=== PATIENT | female | born 1950 ===

== ENCOUNTER → 2017-08-24 | Outpatient (CLI) | payer OTHER | END | disposition home or self-care (01) | LOC: C.LABMFLN 14:08 | PROVIDERS: ATTEND Physician Assistant | DX: R30.0 Dysuria (principal) ==

== ENCOUNTER 2019-03-18 11:26 | Inpatient (IN) ==
[2019-03-18] MEDS ORDERED: SODIUM CHLORIDE 0.9% 1000ML 1,000 ML IV SCH (11:45)
--- NOTE | 2019-03-18 12:08 | XRay Report ---
SINGLE VIEW CHEST CLINICAL HISTORY: Generalized weakness. FINDINGS: An AP, portable, upright chest radiograph is obtained. No prior studies are available for c omparison at the time of dictation. The examination is degraded by portable technique and patient rot ation. A ventriculoperitoneal shunt catheter traverses the right chest wall. The heart is top normal for projection noting atherosclerotic calcification of the thoracic aorta. There is prominence of the pulmonary vasculature. There is elevation of the right hemidiaphragm and bibasilar atelectasis. No l arge pleural effusion or pneumothorax is seen. The skeletal structures are osteopenic. Healed left-si ded rib fractures are noted. IMPRESSION: 1. There is prominence of the pulmonary vasculature. Correlate clinically for evidence of mild conges tive change. 2. There is no airspace consolidation typical for pneumonia or large pleural effusion. Electronically signed by: Tenzin Colon M.D. 03/18/2019 12:07 PM
[2019-03-18 12:30] LABS: Basophils # (auto) 0.03 K/uL (0-0.2); Basophils % (auto) 0.4 %; Eosinophils # (auto) 0.05 K/uL (0-0.5); Eosinophils % (auto) 0.6 %; Hematocrit (blood only) 34.3 % (37-47); Hemoglobin 11.8 g/dL (12.0-16.0); Immature Granulocytes # (auto) 0.01 K/uL (0.00-0.02); Immature Granulocytes % (auto) 0.1 %; Lymphocytes # (auto) 1.53 K/uL (1.2-3.4); Lymphocytes % (auto) 19.4 %; Mean Corpuscular Hemoglobin 30.3 pg (25-34); Mean Corpuscular Hgb Conc 34.4 g/dL (32-36); Mean Corpuscular Volume 87.9 fL (80-100); Mean Platelet Volume 9.4 fL (7.4-10.4); Monocytes # (auto) 0.59 K/uL (0.11-0.59); Monocytes % (auto) 7.5 %; Neutrophils # (auto) 5.66 K/uL (1.4-6.5); Platelet Count 238 K/uL (130-400); RDW Coefficient of Variation 13.8 % (11.5-14.5); RDW Standard Deviation 44.3 fL (36.4-46.3); White Blood Count 7.87 K/uL (4.8-10.8)
[2019-03-18 12:51] LABS: BUN Creatinine Ratio 11.4 (10-20); Blood Urea Nitrogen 12 mg/dl (7-18); Calcium 8.7 mg/dl (8.5-10.1); Carbon Dioxide 25 mmol/L (21-32); Chloride 102 mmol/L (98-107); Est GFR (Non-African American) 53.5; Glucose 115 mg/dl (70-99); Sodium 134 mmol/L (136-145)
--- NOTE | 2019-03-18 12:53 | Emergency Department Note ---
Entered by Haroldo Roca acting as a scribe for History of Present Illness General Chief complaint: Altered Mental Status Time Seen by Provider: 03/18/19 11:30 Source: family Mode of arrival: EMS History of Present Illness Onset (ago): day(s) 1 Location: head Severity: similar to prior episodes Pain Consistency: + intermittent Quality: + other (episode) Associated symptoms: + other (altered mental status, unresponsive) The patient is a 68 year old female who presents to the Emergency Room with complaints of an episode of intermittent altered mental status and dehydration that started yesterday evening. The patients nurse states that she had an altered mental status starting yesterday and was unable to walk normally. The patients states that she was not talking properly last night, and that this morning she was unresponsive. The patients sister and report that she additionally fell last night. The patients additionally reports that this is her 5th episode like this. The patients caretakers state that she has a history of UTI with dehydration and low sodium levels. The patients notes that she is normally alert and talkative. The patients reports that she has a history of cancer, which was treated with chemotherapy to her brain. The patients also notes that she has a history of dementia. Home Medications Home Medications Medication Instructions Recorded Confirmed Type albuterol sulfate HFA 90 2 puffs INHALATION Q4H PRN #18 gm 12/14/18 03/18/19 Rx mcg/actuation aerosol inhaler ipratropium-albuterol 0.5 mg-3 3 ml INHALATION Q4H PRN #180 ml 12/14/18 03/18/19 Rx mg(2.5 mg base)/3 mL nebulization soln Prevagen 1 tab PO QAM 03/18/19 03/18/19 History cefdinir 300 mg PO BID 10 Days #20 cap 03/18/19 Rx fluticasone propion-salmeterol 1 puffs INHALATION QAM 03/18/19 03/18/19 History [Advair Diskus] multivitamin 1 tab PO BID 03/18/19 03/18/19 History omega-3 fatty acids-fish oil [Fish 1 cap PO BID 03/18/19 03/18/19 History Oil] omeprazole 40 mg PO QPM 03/18/19 03/18/19 History polyethylene glycol 3350 17 gm PO DAILY PRN 03/18/19 03/18/19 History rosuvastatin 20 mg PO QPM 03/18/19 03/18/19 History sertraline [Zoloft] 25 mg PO QAM 03/18/19 03/18/19 History tiotropium bromide 1 cap INHALATION QAM 03/18/19 03/18/19 History Allergies Allergy/AdvReac Type Severity Reaction Status Date / Time Penicillins Allergy Verified 03/18/19 12:15 strawberry Allergy Verified 03/18/19 12:15 Past Med/Surg History Medical History Recurrent UTI (Acute) Memory loss or impairment (Acute) Hyponatremia (Acute) Generalized weakness (Acute) GERD without esophagitis (Acute) Depression (Acute) COPD, mild (Acute) Abnormal thyroid function test (Acute) Family History Other No significant family history Social History Preferred Language: Ukrainian Feels Safe at Home: Yes Smoking Status: Unknown if ever smoked Review of Systems See HPI for pertinent positives & negatives. and A total of 10 systems reviewed and were otherwise negative Physical Exam Vital Signs Vital Signs - 24 hr 03/18/19 11:37 03/18/19 11:41 Temperature 37 C Temperature Source Oral Sepsis Recent Fever Within 48 Hours No Sepsis New/Unexplained Change in Mental Status No Sepsis Action Taken by Nursing No Action Required Pulse Rate 97 H Respiratory Rate 20 Blood Pressure 129/75 Blood Pressure Mean 93 Pulse Oximetry 93 Oxygen Delivery Method Room Air Room Air CONSTITUTIONAL/VITAL SIGNS: Reviewed / noted above. GENERAL: Nonverbal. INTEGUMENTARY: Warm, dry, and [place]. HEAD: Normocephalic. EYES: without scleral icterus or trauma. ENT/OROPHARYNX: clear and moist. LYMPHADENOPATHY/NECK: Is supple without lymphadenopathy or meningismus. RESPIRATORY: Lungs clear and equal. CARDIOVASCULAR: Regular rate and rhythm. GI/ABDOMEN: Soft and nontender. No organomegaly or pulsatile mass. No rebound or guarding. Normal bowel sounds. EXTREMITIES: Warm and well perfused. BACK: No CVA tenderness. NEUROLOGICAL: Moves all extremities. PSYCHIATRIC: normal affect. MUSCULOSKELETAL: Normally developed with good muscle tone. Course 1130: The patient was evaluated in room C04. A complete history and physical exam was performed. 1331: Upon reevaluation, the patient was resting comfortably. I discussed findings and results with her. She verbalized agreement of the treatment plan. The patient was discharged home. Administered Medications Ceftriaxone Sodium 1,000 mg/ (Dextrose) 60 mls @ 100 mls/hr IV NOW STA; Protocol Stop: 03/18/19 13:52 Last Admin: 03/18/19 13:31 Dose: Not Given Documented by: [id number] Discontinued Medications Ceftriaxone Sodium (Rocephin) Confirm Administered Dose 1,000 mg IV .STK-MED ONE Stop: 03/18/19 13:25 Last Admin: 03/18/19 13:31 Dose: 1,000 mg Documented by: [id number] Sodium Chloride (Nss 1000ml) 1,000 mls @ 999 mls/hr IV .Q1H1M ZIGGY Stop: 03/18/19 12:45 Last Infusion: 03/18/19 13:22 Dose: 0 mls/hr Documented by: [id number] Admin: 03/18/19 12:10 Dose: 999 mls/hr Documented by: [id number] Medical Decision Making Differential Diagnosis Differential includes acute coronary syndrome, myocardial infarction, CVA, TIA, anemia, infection, pneumonia, UTI, pyelonephritis, poor nutrition, dehydration, electrolyte disturbance,hypoglycemia. Medical Records Attestation: I reviewed the patient's medical records. Home Medications Current Medication List: was personally reviewed by me Laboratory Data Attestation: I reviewed the patient's lab results. Result diagrams: 03/18/19 12:18 03/18/19 12:18 Lab Results 03/18/19 03/18/19 03/18/19 Range/Units 12:18 12:18 12:52 WBC 7.87 (4.8-10.8) K/uL RBC 3.90 L (4.2-5.4) M/uL Hgb 11.8 L (12.0-16.0) g/dL Hct 34.3 L (37-47) % MCV 87.9 (80-100) fL MCH 30.3 (25-34) pg MCHC 34.4 (32-36) g/dL RDW Std Deviation 44.3 (36.4-46.3) fL RDW Coeff of Jayne 13.8 (11.5-14.5) % Plt Count 238 (130-400) K/uL MPV 9.4 (7.4-10.4) fL Immature Gran % (Auto) 0.1 % Neut % (Auto) 72.0 % Lymph % (Auto) 19.4 % [place] % (Auto) 7.5 % Eos % (Auto) 0.6 % Baso % (Auto) 0.4 % Immature Gran # (Auto) 0.01 (0.00-0.02) K/uL Neut # (Auto) 5.66 (1.4-6.5) K/uL Lymph # (Auto) 1.53 (1.2-3.4) K/uL [place] # (Auto) 0.59 (0.11-0.59) K/uL Eos # (Auto) 0.05 (0-0.5) K/uL Baso # (Auto) 0.03 (0-0.2) K/uL Sodium 134 L (136-145) mmol/L Potassium 4.0 (3.5-5.1) mmol/L Chloride 102 (98-107) mmol/L Carbon Dioxide 25 (21-32) mmol/L Anion Gap 7.0 (3-11) BUN 12 (7-18) mg/dl Creatinine 1.06 (0.6-1.2) mg/dl Est Cr Clr Drug Dosing Not Reportable Est GFR ( Amer) 62.0 Est GFR (Non-Af Amer) 53.5 BUN/Creatinine Ratio 11.4 (10-20) Glucose 115 H (70-99) mg/dl Calcium 8.7 (8.5-10.1) mg/dl TSH 2.310 (0.300-4.500) uIu/ml Urine Color Yellow Urine Appearance Clear (Clear) Urine pH 8.5 H (4.5-7.5) Ur Specific [place] 1.011 (1.000-1.030) Urine Protein Negative (Negative) Urine Glucose (UA) Negative (Negative) Urine Ketones Negative (Negative) Urine Blood Trace H (Negative) Urine Nitrite Positive A (Negative) Urine Bilirubin Negative (Negative) Urine Urobilinogen Negative (Negative) Ur Leukocyte Esterase 3+ H (Negative) Urine WBC (Auto) >30 H (0-5) /hpf Urine RBC (Auto) 5-10 H (0-4) /hpf U Hyaline Cast (Auto) 1-5 (0-5) /lpf U Epithel Cells (Auto) 0-5 (0-5) /lpf Urine Bacteria (Auto) 4+ H (Negative) Imaging Data Radiologist's Impression: Radiology results as stated below per my review and the radiologist's interpretation: SINGLE VIEW CHEST CLINICAL HISTORY: Generalized weakness. FINDINGS: An AP, portable, upright chest radiograph is obtained. No prior sadiq dies are available for comparison at the time of dictation. The examination is degraded by portable technique and patient rotation. A ventriculoperitoneal shunt catheter traverses the right chest wall. The heart is top normal for projection noting atherosclerotic calcification of the thoracic aorta. There is prominence of the pulmonary vasculature. There is elevation of the right hemidiaphragm and bibasilar atelectasis. No large pleural effusion or pneumothorax is seen. The skeletal structures are osteopenic. Healed left-sided rib fractures are noted. IMPRESSION: 1. There is prominence of the pulmonary vasculature. Correlate clinically for evidence of mild congestive change. 2. There is no airspace consolidation typical for pneumonia or large pleural effusion. Electronically signed by: Tenzin Colon M.D. 03/18/2019 12:[address] SCAN OF THE BRAIN WITHOUT IV CONTRAST CLINICAL HISTORY: Change in mental status. History of radiation treatment. COMPARISON STUDY: No priors. TECHNIQUE: Unenhanced axial CT scan of the brain is performed from the vertex to the skull base. A dose lowering technique was utilized adhering to the principles of ALARA. The patient was scanned twice due to motion artifact. CT DOSE: 1139.46 mGy.cm FINDINGS: Brain parenchyma: A right frontal approach ventriculostomy catheter terminates at the roof of the third ventricle. There is right frontal encephalomalacia. There is involutional change. Confluent white matter hypodensity is likely related to the reported history of radiation treatment. This could also represent microangiopathic change. Mineralization is noted in the gisela. There is no hemorrhage, mass effect, or evidence of acute territorial ischemia by CT criteria. Dawn-white matter differentiation is preserved. No extra-axial fluid collection is seen. Ventricles, sulci, cisterns: Prominent secondary to involutional change. See above. Intracranial vasculature: Intracranial vessels at the skull base are normal as visualized. Calvarium: There is a right frontal tasha hole. The calvarium is otherwise intact. Sinuses and mastoids: The visualized paranasal sinuses are clear. There are bilateral mastoid effusions. Orbits: The bony orbits are grossly intact. IMPRESSION: 1. There is no hemorrhage, mass effect, or evidence of acute territorial ischemia by CT criteria noting a motion compromised examination. 2. A right frontal approach ventriculostomy catheter is in place as above. Electronically signed by: Tenzin Colon M.D. 03/18/2019 1:09 PM ECG Data Attestation: I personally reviewed and interpreted this ECG as follows: Indication: weakness Rate (beats per minute): 90 Rhythm: normal sinus Findings: no ST elevation and no ectopy Comparison ECG Date: no prior available Blood Pressure Blood Pressure Findings: Elevated blood pressure Blood Pressure Disposition: did not require urgent referral MDM Narrative This is a 68-year-old female who presents to the ED with a chief complaint of altered mental status that started yesterday. The patient had some difficulty with ambulation yesterday and last night the speech was not quite right. The provides most of the history. He states the patient has a history of UTI and dehydration and has had at least 5 similar episodes to this. They [facility] but they decided to come here today. The patient's exam reveals that she is nonverbal. She does have a history of dementia, according to the . She has had previous radiation to her brain regarding cancer. The patient's vital signs are normal. Her physical exam reveals nonverbal state. She does not follow commands but does move all 4 extremities. She is in no distress. The lungs are clear. CBC is normal. Chemistry panel was unremarkable. Urine is suggestive of infection. The patie nt was given IV Rocephin here. She was also given some IV fluids. 1 L normal saline. The patient was discharged. She was discharged on Ceftin ear 500 mg twice daily for 5 days. She was given an extra 5 days for continuation symptoms. Impression & Plan AMS (altered mental status), Acute UTI Discharge Plan Visit Data Chief Complaint: Altered Mental Status ED Provider: Andrew Sutton Discharge Problem: AMS (altered mental status), Acute UTI Patient Disposition: Home - Self-Care Condition: Good Discharge Instructions Activity Restrictions/Additional Instructions: Omnicef as prescribed for 5 days. Follow-up with your doctor for further care and evaluation in 1-2 days if symptoms persist. Return to the emergency department for worsening or new symptoms or any concerns. You have been examined and treated today on an emergency basis only. This is not a substitute for, or an effort to provide, complete comprehensive medical care. It is impossible to recognize and treat all injuries or illnesses in a single emergency department visit. It is therefore important that you follow up closely with your doctor. Call as soon as possible for an appointment. Forms Stand Alone Forms: My [facility], Important Visit Information Prescriptions Prescriptions: New cefdinir 300 mg capsule 300 mg PO BID 10 Days Qty: 20 RF: 0 No Action albuterol sulfate 90 mcg/actuation HFA aerosol inhaler 2 puffs inhalation Q4H PRN (Reason: shortness of breath or wheezing) Qty: 18 RF: 3 ipratropium-albuterol 0.5 mg-3 mg(2.5 mg base)/3 mL solution for nebulization 3 ml inhalation Q4H PRN (Reason: shortness of breath or wheezing) Qty: 180 RF: 3 multivitamin Tablet 1 tab PO BID RF: 0 omega-3 fatty acids-fish oil [Fish Oil] 360-1,200 mg Capsule 1 cap PO BID RF: 0 Prevagen tablet 1 tab PO QAM RF: 0 fluticasone propion-salmeterol [Advair Diskus] 250-50 mcg/dose blister with device 1 puffs inhalation QAM RF: 0 omeprazole 40 mg capsule,delayed release(DR/EC) 40 mg PO QPM RF: 0 sertraline [Zoloft] 25 mg tablet 25 mg PO QAM RF: 0 polyethylene glycol 3350 17 gram/dose powder 17 gm PO DAILY PRN (Reason: Constipation) RF: 0 rosuvastatin 20 mg tablet 20 mg PO QPM RF: 0 tiotropium bromide 18 mcg capsule, w/inhalation device 1 cap inhalation QAM RF: 0 Referrals Referrals: Laurence Alfaro PA-C [Primary Care Provider] - Discharge Problem: AMS (altered mental status) Qualifiers: Altered mental status type: somnolence Qualified Code(s): R40.0 - Somnolence The scribe's documentation has been prepared under my direction and personally reviewed by me in its entirety. I confirm that the note above accurately reflects all work, treatment, procedures, and medical decision making performed by me.
[2019-03-18 13:03] LABS: Appearance Urine Clear (Clear); Bacteria Urine Automated 4+ (Negative); Bilirubin Urine Negative (Negative); Blood Urine Trace (Negative); Color Urine Yellow; Epithelial Cell Urine Auto 0-5 /lpf (0-5); Glucose Urine UA Negative (Negative); Ketones Urine Negative (Negative); Leukocyte Esterase Urine 3+ (Negative); Nitrite Urine Positive (Negative); Protein Urine Negative (Negative); Specific Gravity Urine 1.011 (1.000-1.030); Urobilinogen Urine Negative (Negative); WBC Urine Automated >30 /hpf (0-5); pH Urine 8.5 (4.5-7.5)
--- NOTE | 2019-03-18 13:11 | CT Scan Report ---
CT SCAN OF THE BRAIN WITHOUT IV CONTRAST CLINICAL HISTORY: Change in mental status. History of radiation treatment. COMPARISON STUDY: No priors. TECHNIQUE: Unenhanced axial CT scan of the brain is performed from the vertex to the skull base. A do se lowering technique was utilized adhering to the principles of ALARA. The patient was scanned twice due to motion artifact. CT DOSE: 1139.46 mGy.cm FINDINGS: Brain parenchyma: A right frontal approach ventriculostomy catheter terminates at the roof of the thi rd ventricle. There is right frontal encephalomalacia. There is involutional change. Confluent white matter hypodensity is likely related to the reported history of radiation treatment. This could also represent microangiopathic change. Mineralization is noted in the gisela. There is no hemorrhage, mass effect, or evidence of acute territorial ischemia by CT criteria. Dawn-white matter differentiation i s preserved. No extra-axial fluid collection is seen. Ventricles, sulci, cisterns: Prominent secondary to involutional change. See above. Intracranial vasculature: Intracranial vessels at the skull base are normal as visualized. Calvarium: There is a right frontal tasha hole. The calvarium is otherwise intact. Sinuses and mastoids: The visualized paranasal sinuses are clear. There are bilateral mastoid effusio ns. Orbits: The bony orbits are grossly intact. IMPRESSION: 1. There is no hemorrhage, mass effect, or evidence of acute territorial ischemia by CT criteria noti ng a motion compromised examination. 2. A right frontal approach ventriculostomy catheter is in place as above. Electronically signed by: Tenzin Colon M.D. 03/18/2019 1:09 PM
[2019-03-18] MEDS ORDERED: cefTRIAXone SODIUM 1,000 MG in DEXTROSE 5% 50 ML IV STA (13:17)
[2019-03-18] MEDS ORDERED: cefTRIAXone SODIUM 1000MG/50ML D5W IV ONE (13:24)
--- NOTE | 2019-03-18 15:35 | History & Physical Report ---
Date of Service March 18, 2019 Assessment & Plan (1) AMS (altered mental status): Early sepsis in setting of UTI and baseline dementia Improving s/p IVF and ceftriaxone, will continue WBC WNL Afebrile CT head and CXR neg for acute UA as noted, cx pending Last cx noted was 01/12/19 and pansensitive Ambulatory dysunction (2) Acute UTI: As noted above (3) Memory loss or impairment: s/p radiation with shunt in place Baseline is quite interactive with lapses in short term memory Ambulates with walker Home PT and caregivers (4) Hyponatremia: Hx of prior requiring hospitalization 134 on admission Monitor (5) GERD without esophagitis: continue home meds (6) Depression: continue home meds (7) 1st degree AV block: Noted on EKG, uncertain if new Repeat in AM (8) COPD, mild: continue home meds No signs of exacerbation (9) DVT prophylaxis: SCDs, Heparin for DVT proph History of Present Illness Primary Care Provider: Laurence Alfaro PA-C 68 y/o F who was brought in by family due to AMS/lethargy. Pt has hx of UTI and family noted that she was having minor AMS last HS around 10p. When this happens, they generally call their PCP and get an order for a UA and she is treated as an outpt. She is incontinent of urine and stool at baseline. They had planned to call PCP this AM but when they woke up, pt was not responding to them as she usually would. She attempted to stand with her walker, which is her baseline, and she fell backwards. They brought pt to the ED for further eval. Most of her care is generally at [facility], however they have not been satisfied with their care there recently and came to [facility] instead. Pt was given abx in the ED and family feels she is better than she was this AM, but not at her usual. They state that pt was her usual yesterday. No complaints to them about any health issues. She ate all of her meals yesterday at her usual amount of consumption. Pt has a hx of small cell lung cancer. At some point in her tx about 6 years ago, she did receive radiation to her brain and has developed worsening dementia. Her usual interactions are complete sentences and can follow a conversation. She does occasionally forget names, but always recognizes her family. She always knows the year and has a general concept of date. For instance they say she would possibly think it is still February since it is early in the month of March. She also generally knows where she is. She frequently has poor short term memory for recent daily events. Pt denies fever, SOB, chest pain, abd pain, n/v/c/d, LE pain or swelling. 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 Allergies Allergy/AdvReac Type Severity Reaction Status Date / Time Penicillins Allergy Verified 03/18/19 12:15 strawberry Allergy Verified 03/18/19 12:15 Home Medications Home Medications Medication Instructions Recorded Confirmed Type albuterol sulfate HFA 90 2 puffs INHALATION Q4H PRN #18 gm 12/14/18 03/18/19 Rx mcg/actuation aerosol inhaler ipratropium-albuterol 0.5 mg-3 3 ml INHALATION Q4H PRN #180 ml 12/14/18 03/18/19 Rx mg(2.5 mg base)/3 mL nebulization soln Prevagen 1 tab PO QAM 03/18/19 03/18/19 History cefdinir 300 mg PO BID 10 Days #20 cap 03/18/19 Rx fluticasone propion-salmeterol 1 puffs INHALATION QAM 03/18/19 03/18/19 History [Advair Diskus] multivitamin 1 tab PO BID 03/18/19 03/18/19 History omega-3 fatty acids-fish oil [Fish 1 cap PO BID 03/18/19 03/18/19 History Oil] omeprazole 40 mg PO QPM 03/18/19 03/18/19 History polyethylene glycol 3350 17 gm PO DAILY PRN 03/18/19 03/18/19 History rosuvastatin 20 mg PO QPM 03/18/19 03/18/19 History sertraline [Zoloft] 25 mg PO QAM 03/18/19 03/18/19 History tiotropium bromide 1 cap INHALATION QAM 03/18/19 03/18/19 History Past Med/Surg History Medical History Recurrent UTI (Acute) Memory loss or impairment (Acute) Hyponatremia (Acute) Generalized weakness (Acute) GERD without esophagitis (Acute) Depression (Acute) COPD, mild (Acute) Abnormal thyroid function test (Acute) Family History Mother Cancer Other No significant family history Social History Preferred Language: Kinyar[place]anda Feels Safe at Home: Yes Smoking Status: Former smoker Number of Years Since Quit: 16 ; Hx Alcohol Use: Yes (1 glass of wine nightly) Hx Substance Use: No Review of Systems Review of Systems: Pertinent positives and negatives reviewed in HPI--all others negative Physical Exam Constitutional: WD/WN, vitals as above Eyes: normal visual mendez by confrontation and + anicteric sclerae Neck: normal visual inspection and trachea midline Respiratory: normal respiratory effort, lungs clear to auscultation Cardiovascular: Rate/Rhythm: regular rate and regular rhythm Gastrointestinal (Abdomen): Inspection/Auscultation: abdomen not distended Percussion/Palpation: abdomen soft; abdomen nontender Musculoskeletal: Head/Neck/Chest: normocephalic and head atraumatic negative for edema, peripheral pulses intact Skin: no rashes, warm and dry Neurologic: awake and + confused Speech / Cognition: + abnormal speech Psychiatric: Orientation: oriented to person and cooperative Follows basic commands when asked to take a deep breath or roll to her side Results & Data Vital Signs (Past 12 Hours) Vital Signs Temp Pulse Resp BP Pulse Ox 03/18/19 15:00 20 94 03/18/19 14:30 20 96 03/18/19 14:22 20 92 03/18/19 14:05 20 141/84 H 95 03/18/19 13:30 92 H 20 95 03/18/19 13:06 94 H 19 95 03/18/19 12:30 92 H 23 95 03/18/19 11:37 37 C 97 H 20 129/75 93 Diagnostic Findings CXR: neg for acute CT head: neg for acute ECG Findings: + 1st degree AV block Additional Comments: incomplete RBBB Code Status & VTE Plan Code Status DNR/DNI PG Care Time/CCT Total # of Minutes Spent Total Time Spent with Patient: Total time spent is greater than 50% in coordination of care (as documented) at patient's floor/unit and/or counseling patient: (1) AMS (altered mental status) Altered mental status type: somnolence Qualified Code(s): R40.0 - Somnolence
[2019-03-18] MEDS ORDERED: ACETAMINOPHEN 325 MG TAB PO PRN (18:00)
[2019-03-18] MEDS ORDERED: ONDANSETRON INJ 2 MG/ML 2 ML VIAL IV PRN (18:00)
[2019-03-18] MEDS ORDERED: ALBUTEROL HFA 8 GM INHALER INH PRN (18:00)
[2019-03-18] MEDS ORDERED: MAGNESIUM HYDROXIDE SUSP 30 ML UDC PO PRN (18:00)
[2019-03-18] MEDS ORDERED: POLYETHYLENE (MIRALAX) 17 GM PACK PO PRN (18:00)
[2019-03-18] MEDS ORDERED: ALBUT/IPRATROP 3MG/0.5MG NEB 3 ML VIAL INH PRN (18:00)
[2019-03-18] MEDS: SERTRALINE HCL 50 MG TABLET PO SCH (19:13)
[2019-03-18] MEDS: SODIUM CHLORIDE 0.9% 1000ML 1,000 ML IV SCH (19:14)
[2019-03-18] MEDS: HEPARIN SOD 5,000 UNIT/0.5 ML VIAL SQ SCH (20:34)
[2019-03-18] MEDS: OMEGA-3 (PURIFIED FISH OIL) 1 GM CAP PO SCH (20:35)
[2019-03-18] MEDS: PANTOprazole 40 MG TAB PO SCH (20:35)
[2019-03-18] MEDS: ROSUVASTATIN CALCIUM 20 MG TAB PO SCH (20:35)
[2019-03-18] MEDS ORDERED: INFLUENZA ADMINISTRATION CHARGE ONE (21:30)
[2019-03-18] MEDS ORDERED: INFLUENZA VACCINE HIGH DOSE 65+ 0.5 ML SYR IM ONE (21:30)
[2019-03-18] MEDS ORDERED: PNEUMOCOCCAL POLYSACCHARIDES 25 MCG/0.5 ML VIAL/SYR IM ONE (21:30)
[2019-03-18] MEDS ORDERED: PNEUMOCOCCAL ADMINISTRATION CHARGE ONE (21:30)
[2019-03-19] MEDS: HEPARIN SOD 5,000 UNIT/0.5 ML VIAL SQ SCH ×3 (06:19→21:33)
[2019-03-19 06:36] LABS: Basophils # (auto) 0.03 K/uL (0-0.2); Basophils % (auto) 0.5 %; Eosinophils # (auto) 0.12 K/uL (0-0.5); Eosinophils % (auto) 2.1 %; Hematocrit (blood only) 33.1 % (37-47); Hemoglobin 11.1 g/dL (12.0-16.0); Immature Granulocytes # (auto) 0.01 K/uL (0.00-0.02); Immature Granulocytes % (auto) 0.2 %; Lymphocytes # (auto) 1.92 K/uL (1.2-3.4); Lymphocytes % (auto) 33.2 %; Mean Corpuscular Hemoglobin 29.7 pg (25-34); Mean Corpuscular Hgb Conc 33.5 g/dL (32-36); Mean Corpuscular Volume 88.5 fL (80-100); Mean Platelet Volume 9.7 fL (7.4-10.4); Monocytes # (auto) 0.72 K/uL (0.11-0.59); Monocytes % (auto) 12.5 %; Neutrophils # (auto) 2.98 K/uL (1.4-6.5); Neutrophils % (auto) 51.5 %; Platelet Count 199 K/uL (130-400); RDW Coefficient of Variation 13.9 % (11.5-14.5); RDW Standard Deviation 44.9 fL (36.4-46.3); Red Blood Count 3.74 M/uL (4.2-5.4); White Blood Count 5.78 K/uL (4.8-10.8)
[2019-03-19 07:15] LABS: BUN Creatinine Ratio 11.6 (10-20); Blood Urea Nitrogen 10 mg/dl (7-18); Calcium 8.2 mg/dl (8.5-10.1); Carbon Dioxide 23 mmol/L (21-32); Chloride 102 mmol/L (98-107); Est GFR (African American) 78.8; Glucose 88 mg/dl (70-99); Potassium 3.1 mmol/L (3.5-5.1); Sodium 133 mmol/L (136-145)
--- NOTE | 2019-03-19 08:41 | Hospitalist Progress Note ---
Date of Service March 19, 2019 Assessment & Plan (1) AMS (altered mental status): Metabolic encephalopathy Unsure if the cause is from her "recurrent UTI's She also has episodes of dehydration. She is much improved less than 24 hours after instituting antibiotics. She has also sally receiving IBV fluids. I had extensive discussion with on asymptomatic bacteruria. He still beliebves the infections though are causing these episodes. I iffered intermittent IV fluids administration to help combat her rehydration at home. He refused. He did like the idea of keeping a journal of how much fluid she drinks so we can keep an eye of when she gets dehyydrated. I explained that I do not want her to get home UA's as this could promote resistance and we may just be treating asymptomatic bacteruira. was interested in vaginal estrogen as this may improve and help limit bacteruria. This will be ordered as patient does not have any vaginal bleeding. will continue antibiotics for now. If cultures are resistant to cephalosporin, I explained that then, the antibiotics have no role in her recovery. WBC WNL Afebrile CT head and CXR neg for acute UA as noted, cx pending Last cx noted was 01/12/19 and pansensitive Ambulatory dysunction Family interested in followup with urology as outpatient. 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 She is accompanied by her who is at bedside. She smiles, does not provide medical history. Her states that he is interested in obtaining urine dip sticks at home for home monitoring for her "recurrent uti's". As these are causing her episodes of confusion. also states she appears dehydrated as well when these episodes occur. He states that there are days where he is unsure if she drinks enough fluids. He states she looks much better today. Review of Systems Review of Systems: Unobtainable due to cognitive status Physical Exam Physical Exam: Constitutional: WD/WN, vitals as above; smiling pleasant female in bed Eyes: normal visual mendez by confrontation and + anicteric sclerae Neck: normal visual inspection and trachea midline Respiratory: normal respiratory effort, lungs clear to auscultation Cardiovascular: Rate/Rhythm: regular rate and regular rhythm Gastrointestinal (Abdomen): Inspection/Auscultation: abdomen not distended Percussion/Palpation: abdomen soft; abdomen nontender Musculoskeletal: Head/Neck/Chest: normocephalic and head atraumatic negative for edema, peripheral pulses intact Skin: no rashes, warm and dry Neurologic: awake and + confused Speech / Cognition: + abnormal speech Psychiatric: Orientation: oriented to person and cooperative Results & Data Vital Signs (Past 12 Hours) Vital Signs Temp Pulse Pulse Resp BP Pulse Ox 03/19/19 07:18 36.6 C 72 18 118/73 92 03/19/19 04:09 36.8 C 80 20 107/70 98 03/19/19 01:24 91 H 03/18/19 23:46 37.4 C 89 20 128/78 96 PG Care Time/CCT Total # of Minutes Spent Total Time Spent with Patient: Total time spent is greater than 50% in coordination of care (as documented) at patient's floor/unit and/or counseling patient: (1) AMS (altered mental status) Altered mental status type: somnolence Qualified Code(s): R40.0 - Somnolence
[2019-03-19] MEDS: TIOTROPIUM BROMIDE 5 PUFF/90 MCG INH INH SCH (08:50)
[2019-03-19] MEDS: MULTIVITAMIN TAB PO SCH (08:51)
[2019-03-19] MEDS: FLUTICASONE/SALMETEROL 250/50 (ADVAIR) 14 PUFF/1 INHALER INH SCH (08:52)
[2019-03-19] MEDS: SERTRALINE HCL 50 MG TABLET PO SCH (08:52)
[2019-03-19] MEDS: OMEGA-3 (PURIFIED FISH OIL) 1 GM CAP PO SCH ×2 (08:59→21:33)
[2019-03-19] MEDS ORDERED: NON-FORMULARY MEDICATION (Prevagen 1 TAB) PO SCH (09:00)
[2019-03-19] MEDS: POTASSIUM CHLORIDE PWD 20 MEQ PACK PO SCH ×3 (09:02→21:33)
[2019-03-19] MEDS: PREMARIN VAG CRM 14 APPLN/30 GM TUBE PV SCH (12:07)
[2019-03-19] MEDS: SODIUM CHLORIDE 0.9% 1000ML 1,000 ML IV SCH (12:08)
[2019-03-19] MEDS: cefTRIAXone SODIUM 2,000 MG in DEXTROSE 5% 50 ML IV SCH (14:12)
[2019-03-19] MEDS: ROSUVASTATIN CALCIUM 20 MG TAB PO SCH (21:33)
[2019-03-19] MEDS: PANTOprazole 40 MG TAB PO SCH (21:34)
[2019-03-20] MEDS: SODIUM CHLORIDE 0.9% 1000ML 1,000 ML IV SCH (03:59)
[2019-03-20] MEDS: HEPARIN SOD 5,000 UNIT/0.5 ML VIAL SQ SCH ×2 (05:07→13:54)
[2019-03-20] MEDS: FLUTICASONE/SALMETEROL 250/50 (ADVAIR) 14 PUFF/1 INHALER INH SCH (08:28)
[2019-03-20] MEDS: MULTIVITAMIN TAB PO SCH (08:28)
[2019-03-20] MEDS: POTASSIUM CHLORIDE PWD 20 MEQ PACK PO SCH (08:28)
[2019-03-20] MEDS: OMEGA-3 (PURIFIED FISH OIL) 1 GM CAP PO SCH (08:29)
[2019-03-20] MEDS: TIOTROPIUM BROMIDE 5 PUFF/90 MCG INH INH SCH (08:29)
[2019-03-20] MEDS: SERTRALINE HCL 50 MG TABLET PO SCH (08:30)
[2019-03-20] MEDS: PREMARIN VAG CRM 14 APPLN/30 GM TUBE PV SCH (08:31)
[2019-03-20] MEDS: cefTRIAXone SODIUM 2,000 MG in DEXTROSE 5% 50 ML IV SCH (13:53)
--- NOTE | 2019-03-20 19:11 | Discharge Summary ---
Date of Service March 20, 2019 Admission HPI Per Admitting Provider 68 y/o F who was brought in by family due to AMS/lethargy. Pt has hx of UTI and family noted that she was having minor AMS last HS around 10p. When this happens, they generally call their PCP and get an order for a UA and she is treated as an outpt. She is incontinent of urine and stool at baseline. They had planned to call PCP this AM but when they woke up, pt was not responding to them as she usually would. She attempted to stand with her walker, which is her baseline, and she fell backwards. They brought pt to the ED for further eval. Most of her care is generally at [facility], however they have not been satisfied with their care there recently and came to [facility] instead. Pt was given abx in the ED and family feels she is better than she was this AM, but not at her usual. They state that pt was her usual yesterday. No complaints to them about any health issues. She ate all of her meals yesterday at her usual amount of consumption. Pt has a hx of small cell lung cancer. At some point in her tx about 6 years ago, she did receive radiation to her brain and has developed worsening dementia. Her usual interactions are complete sentences and can follow a conversation. She does occasionally forget names, but always recognizes her family. She always knows the year and has a general concept of date. For instance they say she would possibly think it is still February since it is early in the month of March. She also generally knows where she is. She frequently has poor short term memory for recent daily events. Pt denies fever, SOB, chest pain, abd pain, n/v/c/d, LE pain or swelling. 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 Principal Diagnosis Metabolic encephalopathyrelated to urinary tract infection, dehydration, or both. Discharge Exam Awake and alert pleasant no distress. HEENT normal cephalic atraumatic mucous membranes moist. Breathing unlabored no accessory muscle use. Skin shows no rashes no pallor or icterus. No focal neuro deficits Discharge Data Allergies Allergy/AdvReac Type Severity Reaction Status Date / Time Penicillins Allergy Unknown Verified 03/18/19 18:11 strawberry Allergy Unknown Verified 03/18/19 18:11 Consultations 03/18/19 14:45 ED Decision to Admit Stat 03/18/19 18:00 Consult Case Management - Discharge Planning Routine Ordered Studies 03/18/19 11:40 CT head/brain wo con Stat Hospital Course (1) AMS (altered mental status): Seems to have been related to dehydration, or possibly a UTI as well. Improved with hydration, discussed following oral intake and encouraging at least 60 ounces of fluid a day. Discussed that if she has one bad day with suboptimal fluid intake they should encourage more heavily the next, and if she is working on 3 days with poor oral intake it would be reasonable for MTU for IV fluids to keep her from deteriorating to where she is truly encephalopathic and needing to be admitted. See below as far as UTI (2) Acute UTI: Given that she did not seem to have fever, white count, or clear-cut urinary symptoms, it is not clear if she really had a UTI or if she just had asymptomatic bacteriuria; that said we are several days removed from her acute presentation and she is already under treatment and obviously on unfortunately unreliable historian. Because of all of this we feel obligated to treat the current culture as an infection, but I discussed with the extensively about more recent literature as well as my own clinical experiences with similar situations, that they should look at some degree of clinical logic between simply deciding and altered mental status relates to a urinary tract infection in the futuregiven examples of new urinary symptoms, fever, leukocytosis, or anything else to suggest she does not fact have an infection. For now finish out a course of treatment for complicated UTI (because of her age and the concern on it being part of her encephalopathy) with Keflex. (3) Memory loss or impairment: Stable for home with family support (4) Hyponatremia: Overall stable, outpatient follow-up (5) GERD without esophagitis: continue home meds (6) Depression: continue home meds (7) 1st degree AV block: Outpatient follow-up (8) COPD, mild: continue home meds No signs of exacerbation (9) DVT prophylaxis: SCDs, Heparin for DVT proph utilized during her stay Total Time Total Time Spent Total Time Spent (In Minutes): Greater than 30 Discharge Plan Discharge Items Patient Disposition: Home - Self-Care Reason For Visit: AMS,UTI Discharge Diagnosis: altered mental status - see below Condition on Discharge: Good Activity: Resume your previous activity Non-emergency contact: Primary Care Provider Call non-emergency contact if: you have any medication questions, your symptoms worsen and you have a fever Follow-up/Referrals: Laurence Alfaro PA-C [Primary Care Provider] - Diet: Regular Addtl Attending Provider Instructions: altered mental status -as we discussed - forever when a patient with dementia would have any alteration in their status, if a urinalysis or culture were positive we'd treat it as an infection and assume the infection was culprit in causing the confusion. however, over the last five years or so, a significant amount of research (backed by our own clinical experiences) has turned that thinking sideways and made us realize that a significant percentage of episodes of confusion are related to things besides a urine infection -as a post-menopausal female, she's likely to have a positive urinalysis or culture fairly frequently, on any given day, regardless of how she's feeling --> and with asymptomatic bacteria in the bladder being a common thing, it's also been shown in research that treating bacteria not causing an infection causes harm to people (generally by breeding resistant bacteria that are harder to treat when she gets a real infection, and in upsetting gut bacteria by killing off healthy bacteria with the antibiotics) -in my experience, urinary tract infections probably account for about 25% of change of mental status in people with dementia, but things like dehydration account for more like 50-60% of cases, with the rest being more vague and nonspecific (such as transient viral infections or situations where there's not a clear cause but it gets better) -to protect her from unnecessary antibiotics, it would be reasonable to put a small "safeguard" of clinical logic between checking her urine and treating an infection: if she shows urinary symptoms (pain/burning) then treat, if she shows symptoms of an infection with a positive urine (fevers, chills, etc) then treat. if she doesn't, then look at the urine as most likely a false positive and look at hydration status or other things that could contribute to her not feeling/acting like herself -to keep her hydrated, shoot for about 60 ounces of fluid a day (and as we discussed, since caffeine can act like a diuretic for some people, only count coffee as half of what she drank - so if she drank 12oz of coffee, only give her credit for 6oz). if she doesn't do well one day, try extra hard on day 2 to get her to drink enough. if she's not doing well by day 3, then it would be reasonable to have her PCP order 1-2liters of IV fluids at the MTU (medical treatment unit - the outpatient center at the back of the hospital that gives outpatient IV treatments) - to help keep her from getting bad enough to end up in the hospital. -given her current situation, where it was difficult to tease apart urine infection from dehydration (or both) as the cause of her altered mental status, we feel like it's necessary to treat the current urine culture as thought it is an actual infection. fortunately the bacteria are both sensitive to fairly narrow-spectrum antibiotics so the potential for harm is pretty low -- we'll treat for five more days with keflex (cephalexin) - next dose tomorrow morning Stand-Alone Forms: My [facility] Medications and DC Order Prescriptions: New cephalexin [Keflex] 500 mg capsule 500 mg PO BID 5 Days Qty: 10 RF: 0 Continued albuterol sulfate 90 mcg/actuation HFA aerosol inhaler 2 puffs inhalation Q4H PRN (Reason: shortness of breath or wheezing) Qty: 18 RF: 3 ipratropium-albuterol 0.5 mg-3 mg(2.5 mg base)/3 mL solution for nebulization 3 ml inhalation Q4H PRN (Reason: shortness of breath or wheezing) Qty: 180 RF: 3 multivitamin Tablet 1 tab PO BID RF: 0 omega-3 fatty acids-fish oil [Fish Oil] 360-1,200 mg Capsule 1 cap PO BID RF: 0 Prevagen tablet 1 tab PO QAM RF: 0 fluticasone propion-salmeterol [Advair Diskus] 250-50 mcg/dose blister with device 1 puffs inhalation QAM RF: 0 omeprazole 40 mg capsule,delayed release(DR/EC) 40 mg PO QPM RF: 0 sertraline [Zoloft] 25 mg tablet 25 mg PO QAM RF: 0 polyethylene glycol 3350 17 gram/dose powder 17 gm PO DAILY PRN (Reason: Constipation) RF: 0 rosuvastatin 20 mg tablet 20 mg PO QPM RF: 0 tiotropium bromide 18 mcg capsule, w/inhalation device 1 cap inhalation QAM RF: 0 Discharge Orders: Discharge Order (Routine); Ordered 03/20/19 Ordered By: Floyd Saenz Admission Data Admit Date/Time: 03/18/19 15:39 Attending Provider: Floyd Saenz Admit Provider: Sarah Tanner Primary Care Provider: Laurence Alfaro Other Providers: Sarah Tanner ; Davey Shetty Other Interventions: Discharge Summary Assessment (RN) Last Done: 03/20/19 16:43 DC Date/Time DO NOT enter until pt leaves facility: 03/20/19 17:38
== END 2019-03-20 17:38 | disposition home or self-care (01) | DRG 689 ==
LOC: ED 11:26 → SUATTDRO 15:39 → 2W 15:39

== ENCOUNTER 2020-11-14 19:02 | Inpatient (IN) ==
--- NOTE | 2020-11-14 21:20 | History & Physical Report ---
Date of Service November 14, 2020 Assessment & Plan (1) Syncope and collapse: Tesha Nails 70-year-old female who presented as a direct admission from [facility], originally presented to them earlier today following concern of syncopal episode earlier in the day. Syncope/aphasia: -Concerned that this represents acute strokelike event versus less likely decompensation as a result of infectious process -CT head negative for acute intracranial changes -MRI ordered for demonstration of potential acute intracranial changes -As last known well approximately 0700 this morning do not think that she is a candidate for thrombolytics or thrombectomy at this point time -Disks from outside hospital patient's chart to be uploaded for review by neurology -Neurology consulted for further evaluation of potential strokelike symptoms -Consideration of resumption of antibiotic regimen in the setting of clearance of acute strokelike cause of symptoms -this seems to be less likely at this point in time to be the source of patient's acute symptomatology -PT/OT/speech therapy consulted Diet: NPO until further evaluation by speech CODE STATUS: DNR/DNI Avoid DVT prophylaxis at this point time (2) Aphasia: Admission and Anticipated Discharge Date Admission Date: November 14, 2020 History of Present Illness Primary Care Provider: Laurence Alfaro PA-C Tesha Nails 70-year-old female who presented as a direct admission from [facility], originally presented to them earlier today following concern of syncopal episode earlier in the day. Earlier in the day upon waking patient was talking with the daughter using an assistive device to walk to the bathroom she needed to urinate and during that time patient was noticed to suddenly passed out with subsequent leftward lean and unresponsiveness. As result of this they called EMS who transferred her to [facility] for further evaluation family notes that this may happen 1-2 times a yearpatient does have a past medical history significant for dementia with frequent urinary tract infections that presents similarly however in the past had never had complete unresponsiveness. Since that time family noted that she has had slight improvement in her expressiveness and overall appearance however continued to have difficulties with speech family notes that she is able to be understood by them about 50% of the time but by strangers or people that she does not know or interact with on a regular basis this is much less frequent, however following his acute change even family is having more difficulty with understanding her. Per review of outside hospital records patient had CT chest demonstrated a left lung infiltrate suggestive for infectious process along with chronic appearing postradiation changes to the right upper lobe. Additionally had a shunt series conducted which demonstrated no INSTRUCTIONAL INTERVENTIONIST shunt fracture, and demonstrated bilateral upper lobe infiltrates as previously noted on CT chest CT head demonstrated no acute intracranial hemorrhage or mass-effect stable position of right frontal INSTRUCTIONAL INTERVENTIONIST shunt. Patient had unimpressive urinalysis. And unimpressive laboratory findings. Had negative Covid PCR prior to transfer. Allergies Allergy/AdvReac Type Severity Reaction Status Date / Time Penicillins Allergy Unknown Unknown Verified 11/14/20 20:15 strawberry Allergy Unknown Unknown Verified 11/14/20 20:15 Home Medications Medication Instructions Recorded Confirmed Type multivitamin 1 tab PO DAILY 03/18/19 11/14/20 History omega-3 fatty acids-fish oil [Fish 1 cap PO DAILY 03/18/19 11/14/20 History Oil] inhalational spacing device #1 ea 07/20/20 10/11/20 Rx rosuvastatin 40 mg PO DAILY 08/31/20 11/14/20 History sertraline 25 mg PO QAM 08/31/20 11/14/20 History lamotrigine 25 mg tablet 50 mg PO BID tab 09/05/20 11/14/20 History Lift Chair See Rx Instructions .ROUTE 10/11/20 10/11/20 Rx .COMPLEX #1 ea budesonide-formoterol [Symbicort] 2 puff INHALATION BID 11/14/20 11/14/20 History citicoline [Cognitive Health] 500 mg PO DIRECTED 11/14/20 11/14/20 History Past Med/Surg History Medical History Abnormal thyroid function test COPD, mild Depression Generalized weakness GERD without esophagitis History of adenomatous polyp of colon History of carpal tunnel syndrome History of hydrocephalus History of lung cancer History of peripheral neuropathy Hyponatremia 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 Memory loss or impairment Recurrent UTI Surgical History History of bronchoscopy History of ventricular shunt Family History Mother Breast cancer Sister Breast cancer Other No significant family history Denies family history of Myocardial infarction Stroke Social History Smoking Status: Former smoker Number of Years Since Quit: 16; Hx Alcohol Use: Yes Alcohol type: wine Hx Substance Use: No Preferred Language: Swedish Communication Ability: Effective Emergency Department Technician Required: No Beliefs That Will Affect Care: None marital status: Current Living Situation: Spouse Current Living Situation Comment: home with spouse and daughter Feels Safe at Home: Yes Safety Concerns: Feels Safe At This Time Assistive Devices: Glasses, Mechanical Lift and Walker Review of Systems Review of Systems: All systems reviewed & are unremarkable except as noted in HPI & below Physical Exam Constitutional: well developed, + behavioral limitations, + language barrier and + frail appearing Eyes: PERRL, conjunctivae normal, anicteric sclerae ENMT: external ear and nose normal, oropharynx normal Respiratory: normal respiratory effort; no respiratory distress and no labored breathing Auscultation: + rhonchi (upper lobes); breath sounds present, no diminished lung sounds, no crackles, no rales and no wheezes Cardiovascular: Rate/Rhythm: regular rate and regular rhythm Heart Sounds: no gallop, no murmur and no cardiac rub Vessels: normal peripheral pulses Gastrointestinal (Abdomen): normal bowel sounds, soft, nontender, no hepatosplenomegaly Musculoskeletal: no cyanosis or clubbing, extremities motor strength 5/5 Skin: no rashes, warm and dry Psychiatric: Orientation: alert and cooperative; + not oriented x 3 Speech: + mute Results & Data Results & Data ([facility]) Vital Signs (Past 12 Hours) Vital Signs Temp Pulse Resp BP Pulse Ox 11/14/20 20:34 37.0 C 93 H 19 121/77 97 Laboratory Results 11/14/20 11/14/20 Range/Units 22:27 22:27 COVID-19 Eval Order Covid19 at [facility] SARS-CoV-2 (PCR) NEGATIVE (Negative) Medications Administered Current Inpatient Medications Acetaminophen (Acetaminophen 325 Mg Tab) 650 mg PO Q4H PRN PRN Reason: Pain or Fever Stop: 12/14/20 22:27 Al Hydrox/Mg Hydrox/Simethicone (Aluminum/Magnesium Susp 30 Ml Udc) 15 ml PO Q4H PRN PRN Reason: Dyspepsia Stop: 12/14/20 22:27 Fluticasone/Vilanterol (Fluticasone/Vilanterol 100/25mcg 14 Puffs/Inhaler) 1 puffs INH DAILY ZIGGY; Protocol Stop: 12/15/20 08:59 Last Admin: 11/15/20 08:25 Dose: Not Given Documented by: Lamotrigine (Lamotrigine 25 Mg Tab) 50 mg PO BID ZIGGY Stop: 12/15/20 08:59 Last Admin: 11/15/20 08:24 Dose: 50 mg Documented by: Magnesium Hydroxide (Magnesium Hydroxide Susp 30 Ml Udc) 30 ml PO Q12H PRN PRN Reason: Constipation Stop: 12/14/20 22:27 Miscellaneous Information (Pharmacist Discharge Med Rec Consult) 1 ea N/A UD PRN PRN Reason: Consult Stop: 12/14/20 23:04 Morphine Sulfate (Morphine Sulfate 2 Mg/Ml Carp) 2 mg IV Q30M PRN PRN Reason: Chest Pain Stop: 11/28/20 22:27 Nitroglycerin (Nitroglycerin Sl 0.4 Mg/Tab Tab) 0.4 mg SL UD PRN PRN Reason: Chest Pain Stop: 12/14/20 22:27 Ondansetron HCl (Ondansetron Inj 2 Mg/Ml 2 Ml Vial) 4 mg IV Q6H PRN PRN Reason: Nausea Stop: 12/14/20 22:27 Polyethylene Glycol (Polyethylene (Miralax) 17 Gm Pack) 17 gm PO DAILY PRN PRN Reason: Constipation Stop: 12/14/20 22:27 Rosuvastatin Calcium (Rosuvastatin Calcium 20 Mg Tab) 40 mg PO DAILY [facility] Stop: 12/15/20 08:59 Last Admin: 11/15/20 08:24 Dose: 40 mg Documented by: Sertraline HCl (Sertraline Hcl 50 Mg Tablet) 25 mg PO QAM [id number] Stop: 12/15/20 08:59 Last Admin: 11/15/20 08:24 Dose: 25 mg Documented by: Supervising Physician Co-Signing Physician Notes Patient seen and examined, chart reviewed, case discussed with Dr. Dickens and I agree with his assessment and plan as documented above. Briefly, patient is a 70yo female with dementia presenting with episode of unresponsiveness, possible left sided deficit. Patient transferred from [facility] - had CT of the head performed there which showed no intracranial hemorrhag or mass effect as well as stable positioning of right frontal INSTRUCTIONAL INTERVENTIONIST shunt. Patient with poor functional baseline as well as poor communication. She is unable to provide details of events preceding hospitalization. On exam she is sleeping, arousable. Answering "cover me up" when questioned. Able to squeeze hands and move feet +S1/S2, regular, no m/r/g Lungs - CTA anteriorly Abd - +BS, soft, NT/ND Ext - no edema Labs and images reviewed Assessment/Plan - CVA vs syncope vs acute infection -Check MRI -Neuro checks -Continue home medications Resident Activity Tracking Resident Involvement: Resident Care Provided Care Provided: Adult Hospital Medicine
[2020-11-14] MEDS ORDERED: MoRPHine SULFATE 2 MG/ML CARP IV PRN (22:28)
[2020-11-14] MEDS ORDERED: ALUMINUM/MAGNESIUM SUSP 30 ML UDC PO PRN (22:28)
[2020-11-14] MEDS ORDERED: ONDANSETRON INJ 2 MG/ML 2 ML VIAL IV PRN (22:28)
[2020-11-14] MEDS ORDERED: MAGNESIUM HYDROXIDE SUSP 30 ML UDC PO PRN (22:28)
[2020-11-14] MEDS ORDERED: NITROGLYCERIN SL 0.4 MG/TAB TAB SL PRN (22:28)
[2020-11-14] MEDS ORDERED: POLYETHYLENE (MIRALAX) 17 GM PACK PO PRN (22:28)
[2020-11-14] MEDS ORDERED: ACETAMINOPHEN 325 MG TAB PO PRN (22:28)
[2020-11-14] MEDS ORDERED: PHARMACIST DISCHARGE MED REC CONSULT PRN (23:05)
[2020-11-15] MEDS: SERTRALINE HCL 50 MG TABLET PO SCH (08:24)
[2020-11-15] MEDS: ROSUVASTATIN CALCIUM 20 MG TAB PO SCH (08:24)
[2020-11-15] MEDS: lamoTRIgine 25 MG TAB PO SCH ×2 (08:24→20:00)
[2020-11-15] MEDS: FLUTICASONE/VILANTEROL 100/25MCG 14 PUFFS/INHALER INH SCH (08:25)
--- NOTE | 2020-11-15 10:05 | Hospitalist Progress Note ---
Date of Service November 15, 2020 Assessment & Plan (1) Aphasia: 70yo female who presented as a direct admission from [facility] due to concerns over syncopal episode and possible stroke. Syncope, aphasia Concerned that this represents acute strokelike event, vs, less likely, decompensation as a result of infectious process CT head (at OSH) negative for acute intracranial changes Unable to obtain MRI due to metal in patient's FINE HAIRER shunt tPA not indicated, as patient's [id number] is 0700 yesterday Neurology consulted, appreciate their recommendations PT/OT consulted Per speech eval, minced and moist diet with aspiration precautions Given that we cannot obtain an MRI, will continue to observe clinically FEN: minced and moist diet with extra gravy Code status: DNR/DNI DVT ppx: SCDs Isolation: none Consults: neurology Dispo: med/surg tele Admission and Anticipated Discharge Date Admission Date: November 14, 2020 Supervising Physician Co-Signing Physician Notes I personally examined the patient and verified all lundberg points of history and exam, discussed case, and agree with decision making with Dr Bee Discussed with neurology. Patient herself offers very limited HPI and review of systemsbut mostly she seems to feel okay. Vitals noted, in general she is awake and alert very slow to respond but appears in no distress. HEENT normocephalic atraumatic mucous membranes moist. Cranial nerves II through XII are grossly intact gross motor appears to be intact as best can be assessed, no focal neuro deficits as best can be assessed Syncope/aphasiabroad differential, stroke work-up underway. Secondary risk reduction, supportive care. Otherwise as above. Subjective Patient seen and evaluated at bedside this morning. No acute events since admission. Patient is laying in bed comfortably. Patient answers very few questions; it is unclear if this is due to poor hearing or poor understanding but seems to be a combination of both. Patient denies any current pain and would like her catheter removed. Further ROS unobtainable. Review of Systems Review of Systems: See HPI Physical Exam Constitutional: comfortable; no acute distress Eyes: PERRL ENMT: Ears: + hearing impairment Respiratory: normal respiratory effort, lungs clear to auscultation Cardiovascular: RRR, no murmur, no edema Neurologic: PERRL, EOMI, accommodation nl, no face palsy, no dysarthria normal touch/pain/proprioception, moves all extremities and + confused; no focal motor deficits Motor/Sensory: no tremor Cranial Nerves: EOM intact bilaterally Results & Data Results & Data ([facility]) Vital Signs (Past 12 Hours) Vital Signs Temp Pulse Pulse Resp BP Pulse Ox 11/15/20 08:43 84 11/15/20 08:13 37.0 C 101 H 18 115/73 97 11/15/20 03:07 37.0 C 89 18 107/77 96 11/15/20 00:00 89 11/14/20 23:22 36.6 C 88 18 122/78 95 Resident Activity Tracking Resident Involvement: Resident Care Provided Care Provided: Adult Hospital Medicine
[2020-11-15 10:46] LABS: Basophils # (auto) 0.04 K/uL (0-0.2); Basophils % (auto) 0.7 %; Eosinophils # (auto) 0.26 K/uL (0-0.5); Eosinophils % (auto) 4.5 %; Hemoglobin 11.1 g/dL (12.0-16.0); Lymphocytes # (auto) 1.38 K/uL (1.2-3.4); Lymphocytes % (auto) 23.9 %; Mean Corpuscular Hemoglobin 29.9 pg (25-34); Mean Corpuscular Hgb Conc 33.6 g/dL (32-36); Mean Corpuscular Volume 88.9 fL (80-100); Mean Platelet Volume 9.4 fL (7.4-10.4); Monocytes # (auto) 0.72 K/uL (0.11-0.59); Monocytes % (auto) 12.5 %; Neutrophils # (auto) 3.38 K/uL (1.4-6.5); Neutrophils % (auto) 58.4 %; Platelet Count 232 K/uL (130-400); RDW Coefficient of Variation 14.1 % (11.5-14.5); RDW Standard Deviation 46.5 fL (36.4-46.3); Red Blood Count 3.71 M/uL (4.2-5.4); White Blood Count 5.78 K/uL (4.8-10.8)
[2020-11-15 11:09] LABS: BUN Creatinine Ratio 14.7 (10-20); Calcium 8.6 mg/dl (8.5-10.1); Creatinine Clr Calc Pharmacy 76.3 ml/min; Est GFR (African American) 105.1 ml/min; Est GFR (Non-African American) 90.7 ml/min; Potassium 3.3 mmol/L (3.5-5.1)
--- NOTE | 2020-11-15 11:10 | Neurology Consultation ---
Date of Consultation November 15, 2020 Assessment & Plan (1) Syncope and collapse: (2) Generalized seizures: (3) Dementia: Patient had an episode of syncope with a delayed recovery and some language/ confusion issues thereafter. She is probably at her baseline currently although I have never met her before. 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 CT scan [facility] the head at [facility] showed a stable shunt /ventricular size with no acute changes. There was concern she may have had a stroke or TIA. I suspect her syncope is more related to cardiovascular issues concerning her hypotension. She may have orthostasis as well. There is no evidence of stroke on neurologic examination today Patient has a history of seizures which are probably generalized. She has not had staring spells since put on lamotrigine in 2019. recommendations: 1. Consider MRI of the brain if able to obtain without contrast to evaluate for stroke 2. I see no need for EEG at this time. 3. I will follow and make additional recommendations pending her clinical course. Overall, I spent a total of 60 minutes with this case including review of records, direct evaluation the patient at bedside, and discussing the case with the RN at bedside and Dr. Saenz including differential diagnosis and treatment options History of Present Illness Reason for Consultation: Patient is a 70-year-old, who I was asked to see at the request of Dr. Dickens, for neurologic consultation regarding possible stroke- like symptoms and other neurologic issues Requesting Physician: Dr. Dickens Attending Physician: Floyd Saenz, DO History of Present Illness patient has a diagnosis of small cell lung cancer in 2011. apparently she had preventive radiation to her whole brain as well as chemotherapy. Apparently her lung cancer has been in remission for the last 5 years. Unfortunately, the whole brain radiation has resulted in severe memory loss /dementia and balance issues. she has a depression chronically as well. she has a ventriculoperitoneal shunt put in in the past and has recurrent UTIs. I note from the history that she has been seeing Dr. Keen, neurologist in [facility] from April of 2019 through July of 2020. She carries a diagnosis of "Absence epileptic syndrome, intractable, without status epilepticus". In April of 2019 EEG showed mild generalized slowing but no potentially epileptogenic discharges. She was put on low-dose lamotrigine and has been on 50 milligrams twice daily since. The staring spells apparently stopped. The patient went to the [facility] Emergency Room November 14. Apparently she had a syncopal event . She was feeling tired after going to a family graduation democrat the day before and they would got her up to take her to the bathroom when she apparently had a syncopal event. They caught her so she did not fall or hit her head. apparently she just "when out" without warning, lean to the left and was unresponsive. There was no seizure activity noted I had she did not bite her tongue, stiffen, or have incontinence. The EMS felt that she was hypotensive, tachycardic, and febrile. In the emergency room her blood pressure was 117/69, pulse 96, respiratory rate 20, and temperature 36.9, with an O2 saturation of [address] patient had a CT scan of the chest which revealed infiltrates suggestive of infection. A CT scan of the head was stable with no acute changes. Apparently she was transferred directly to our institution. Additional history Suggest that she has a syncopal episode perhaps once or twice a year and has frequent urinary tract infections. They were concerned because this syncopal episode she was completely unresponsive ( but they had held her up from falling). Following this event she apparently had difficulties with speech and seemed more confused. CBC showed mild anemia. Chem profile Is remarkable for a mildly low potassium of 3.3. Glucose was 75 and hemoglobin A1c is pending. Triglycerides of 49 and total cholesterol 160. The patient herself is awake and has no complaint of pain or headache. She thinks she has little dizzy and she does not know where she is. Blood pressure recently is 115/73. Her temperature is 37.0 new pulse is 84. Allergies Allergy/AdvReac Type Severity Reaction Status Date / Time Penicillins Allergy Unknown Unknown Verified 11/14/20 20:15 strawberry Allergy Unknown Unknown Verified 11/14/20 20:15 Home Medications Medication Instructions Recorded Confirmed Type multivitamin 1 tab PO DAILY 03/18/19 11/14/20 History omega-3 fatty acids-fish oil [Fish 1 cap PO DAILY 03/18/19 11/14/20 History Oil] inhalational spacing device #1 ea 07/20/20 10/11/20 Rx rosuvastatin 40 mg PO DAILY 08/31/20 11/14/20 History sertraline 25 mg PO QAM 08/31/20 11/14/20 History lamotrigine 25 mg tablet 50 mg PO BID tab 09/05/20 11/14/20 History Lift Chair See Rx Instructions .ROUTE 10/11/20 10/11/20 Rx .COMPLEX #1 ea budesonide-formoterol [Symbicort] 2 puff INHALATION BID 11/14/20 11/14/20 History citicoline [Cognitive Health] 500 mg PO DIRECTED 11/14/20 11/14/20 History Patient History Medical History Abnormal thyroid function test COPD, mild Depression Generalized weakness GERD without esophagitis History of adenomatous polyp of colon History of carpal tunnel syndrome History of hydrocephalus History of lung cancer History of peripheral neuropathy Hyponatremia 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 Memory loss or impairment Recurrent UTI Surgical History History of bronchoscopy History of ventricular shunt Family History Mother Breast cancer Sister Breast cancer Other No significant family history Denies family history of Myocardial infarction Stroke Social History Smoking Status: Former smoker Number of Years Since Quit: 16; Hx Alcohol Use: Yes Alcohol type: wine Hx Substance Use: No Preferred Language: Lao Communication Ability: Effective Agent Telegrapher Required: No Beliefs That Will Affect Care: None marital status: Current Living Situation: Spouse Current Living Situation Comment: home with spouse and daughter Feels Safe at Home: Yes Safety Concerns: Feels Safe At This Time Assistive Devices: Glasses, Mechanical Lift and Walker Review of Systems Review of Systems: Unobtainable due to cognitive status Exam (Neuro) Physical Exam: patient is awake and opens her eyes to voice. She is attentive and focuses on the examiner and follows one-step commands very well, although she is slow to do so most of the time. She is very hard of hearing. Her mood is reasonable and her affect is flat. The patient knows her name but does not know where she is. She does not know the month or the day and really can't answer questions. Extraocular eye muscles are intact without nystagmus. Pupils are 3 millimeters bilaterally reactive to light. there is no facial droop. Tongue is midline and palate moves well. There is good sensation of the face bilaterally. Neck is supple. There are no cranial or ocular bruits and heart is regular rhythm and rate without murmur. Coordination seems normal in the arms without tremor or ataxia. Motor strength seems 5/5 diffusely in the arms and legs both proximally and distally symmetrically. Sensory examination seems intact in all 4 limbs and reflexes are 1/4 in all 4 limbs with downgoing toes to plantar stimulation bilaterally. Tone is reasonable in the limbs. Results & Data ([facility]) Vital Signs (Past 12 Hours) Vital Signs Temp Pulse Pulse Resp BP Pulse Ox 11/15/20 08:43 84 11/15/20 08:13 37.0 C 101 H 18 115/73 97 11/15/20 03:07 37.0 C 89 18 107/77 96 11/15/20 00:00 89 11/14/20 23:22 36.6 C 88 18 122/78 95 PG Care Time/CCT Total # of Minutes Spent Total Time Spent with Patient: Total time spent is greater than 50% in coordination of care (as documented) at patient's floor/unit and/or counseling patient: Coding Level of Care Code 66545 Initial Inpt Care Lvl 3 Diagnoses Syncope and collapse R55 Generalized seizures R56.9 Dementia F03.90
[2020-11-15 11:35] LABS: Estimated Average Glucose 128 mg/dl; Hemoglobin A1C 6.1 % (4.5-5.6)
--- NOTE | 2020-11-15 15:20 | Billing Data ---
Date of Service November 15, 2020 Coding Level of Care Code 66406 Subseq Hosp Care Lvl 2
--- NOTE | 2020-11-16 03:48 | Billing Data ---
Date of Service November 14, 2020 Coding Level of Care Code 06282 Initial Inpt Care Lvl 2
[2020-11-16 06:42] LABS: Basophils # (auto) 0.03 K/uL (0-0.2); Basophils % (auto) 0.6 %; Eosinophils # (auto) 0.31 K/uL (0-0.5); Eosinophils % (auto) 5.9 %; Hematocrit (blood only) 32.6 % (37-47); Hemoglobin 11.1 g/dL (12.0-16.0); Lymphocytes # (auto) 1.48 K/uL (1.2-3.4); Lymphocytes % (auto) 28.3 %; Mean Corpuscular Hemoglobin 29.4 pg (25-34); Mean Corpuscular Volume 86.5 fL (80-100); Mean Platelet Volume 9.1 fL (7.4-10.4); Monocytes # (auto) 0.64 K/uL (0.11-0.59); Monocytes % (auto) 12.2 %; Neutrophils # (auto) 2.77 K/uL (1.4-6.5); Platelet Count 232 K/uL (130-400); RDW Coefficient of Variation 14.1 % (11.5-14.5); RDW Standard Deviation 44.8 fL (36.4-46.3); Red Blood Count 3.77 M/uL (4.2-5.4); White Blood Count 5.23 K/uL (4.8-10.8)
[2020-11-16 07:12] LABS: BUN Creatinine Ratio 21.4 (10-20); Calcium 8.7 mg/dl (8.5-10.1); Creatinine Clr Calc Pharmacy 69.4 ml/min; Potassium 3.4 mmol/L (3.5-5.1)
--- NOTE | 2020-11-16 08:18 | Hospitalist Progress Note ---
Date of Service November 16, 2020 Assessment & Plan Admission and Anticipated Discharge Date Admission Date: November 14, 2020 Results & Data Results & Data ([facility]) Vital Signs (Past 12 Hours) Vital Signs Temp Pulse Pulse Resp BP Pulse Ox 11/16/20 07:59 36.8 C 75 20 116/73 94 11/16/20 03:47 36.4 C L 75 16 129/77 94 11/15/20 23:21 78 11/15/20 22:59 36.3 C L 86 16 120/70 96
[2020-11-16] MEDS: FLUTICASONE/VILANTEROL 100/25MCG 14 PUFFS/INHALER INH SCH (08:43)
[2020-11-16] MEDS: lamoTRIgine 25 MG TAB PO SCH (08:44)
[2020-11-16] MEDS: ROSUVASTATIN CALCIUM 20 MG TAB PO SCH (08:44)
[2020-11-16] MEDS: SERTRALINE HCL 50 MG TABLET PO SCH (08:45)
[2020-11-16] MEDS ORDERED: POTASSIUM CHLORIDE 20 MEQ/15 ML UDC PO SCH (09:00)
--- NOTE | 2020-11-16 16:02 | Discharge Summary ---
Date of Service November 16, 2020 Admission HPI Per Admitting Provider Tesha Nails 70-year-old female who presented as a direct admission from [facility], originally presented to them earlier today following concern of syncopal episode earlier in the day. Earlier in the day upon waking patient was talking with the daughter using an assistive device to walk to the bathroom she needed to urinate and during that time patient was noticed to suddenly passed out with subsequent leftward lean and unresponsiveness. As result of this they called EMS who transferred her to [facility] for further evaluation family notes that this may happen 1-2 times a yearpatient does have a past medical history significant for dementia with frequent urinary tract infections that presents similarly however in the past had never had complete unresponsiveness. Since that time family noted that she has had slight improvement in her expressiveness and overall appearance however continued to have difficulties with speech family notes that she is able to be understood by them about 50% of the time but by strangers or people that she does not know or interact with on a regular basis this is much less frequent, however following his acute change even family is having more difficulty with understanding her. Per review of outside hospital records patient had CT chest demonstrated a left lung infiltrate suggestive for infectious process along with chronic appearing postradiation changes to the right upper lobe. Additionally had a shunt series conducted which demonstrated no SERVICE COUNTER CASHIER shunt fracture, and demonstrated bilateral upper lobe infiltrates as previously noted on CT chest CT head demonstrated no acute intracranial hemorrhage or mass-effect stable position of right frontal SERVICE COUNTER CASHIER shunt. Patient had unimpressive urinalysis. And unimpressive laboratory findings. Had negative Covid PCR prior to transfer. Admission Exam Per Admitting Provider Constitutional: well developed, + behavioral limitations, + language barrier and + frail appearing Eyes: PERRL, conjunctivae normal, anicteric sclerae ENMT: external ear and nose normal, oropharynx normal Respiratory: normal respiratory effort; no respiratory distress and no labored breathing Auscultation: + rhonchi (upper lobes); breath sounds present, no diminished lung sounds, no crackles, no rales and no wheezes Cardiovascular: Rate/Rhythm: regular rate and regular rhythm Heart Sounds: no gallop, no murmur and no cardiac rub Vessels: normal peripheral pulses Gastrointestinal (Abdomen): normal bowel sounds, soft, nontender, no hepatosplen omegaly Musculoskeletal: no cyanosis or clubbing, extremities motor strength 5/5 Skin: no rashes, warm and dry Psychiatric: Orientation: alert and cooperative; + not oriented x 3 Speech: + mute Principal Diagnosis Acute mental status change Discharge Exam Constitutional comfortable; no acute distress Eyes PERRL ENMT Ears: + hearing impairment Respiratory normal respiratory effort, lungs clear to auscultation Cardiovascular RRR, no murmur, no edema Neurologic PERRL, EOMI, accommodation nl, no face palsy, no dysarthria normal touch/pain/proprioception, moves all extremities and + confused; no focal motor deficits Motor/Sensory: no tremor Cranial Nerves: EOM intact bilaterally Discharge Data Allergies Allergy/AdvReac Type Severity Reaction Status Date / Time Penicillins Allergy Unknown Unknown Verified 11/14/20 20:15 strawberry Allergy Unknown Unknown Verified 11/14/20 20:15 Consultations 11/14/20 23:05 Consult Neurology Routine Hospital Course (1) Aphasia: Syncope, aphasia CT performed on arrival to the ED showed no acute intracranial changes. tPA was not indicated due to time of [id number]. MRI was unable to be obtained, as patient's SERVICE COUNTER CASHIER shunt would have required interrogation prior, and [facility] does not have a neurosurgeon on staff. Neurology was consulted and felt patient's presentation was unlikely to be due to stroke, and also felt MRI was not necessary. Patient was observed clinically, and showed clinical improvement. Patient was discharged on hospital day two in stable condition. Patient was hemodynamically stable for the entirety of her hospitalization. Total Time Total Time Spent Total Time Spent (In Minutes): <30 Discharge Plan Discharge Items Patient Disposition: Home - Self-Care Reason For Visit: PNEUMONIA Discharge Diagnosis: AMS Activity: Resume your previous activity Non-emergency contact: Primary Care Provider Call non-emergency contact if: your symptoms worsen Follow-up/Referrals: Laurence Alfaro PA-C [Primary Care Provider] - 11/21/20 1:30 pm (Please follow up with Laurence Alfaro PA-C on Thursday11/21/20 at 1:30 pm. Please arrive to the office at 1:15 pm for your appointment. If you are unable to keep this appointment, please call the office to reschedule at [phone].) Diet: Regular Addtl Attending Provider Instructions: You were admitted to the hospital for falls and concern for stroke. Scans of the brain did not look like you had a stroke. We treated you with medicines, and feel it is safe for you to return home. A discharge summary will be sent to your primary care physician to ensure continuity of care. Please bring this discharge summary with you to your next office appointment so that your provider can review it at that time. Follow-up appointments: Make a follow-up appointment with your PCP within the next week. It is very important that you follow up with them shortly after discharge from the hospital. Keep all your follow-up appointments as already scheduled. If you cannot make an appointment, notify your provider. Medications: Your medication list has been reviewed and reconciled upon discharge to ensure accuracy and continuity of care. An updated list of all your medications is included with your hospital discharge paperwork. Please review this list closely. Take your medications as instructed; do not skip a dose of your medicines. Make sure all of your doctors know every medicine you are taking (including [id number] medicines, vitamins, and supplements). Call your primary care provider before taking any new medicines (including uqjm-otl-ebfhjrc medicines, vitamins, and supplements), because some of these may interact with your current medications, or may make your symptoms worse. Tell your primary care provider if you cannot afford your medications. CONTACT YOUR PRIMARY CARE PROVIDER if you experience any of the following: Falls or loss of consciousness New weakness or difficulty speaking Difficulty following your treatment plan, or difficulty taking medications CALL 911 OR GO TO THE EMERGENCY DEPARTMENT if you experience any of the following: Sudden, severe abdominal pain or nausea/vomiting Severe chest pain, or chest pain that radiates (moves) to your jaw or arm Sudden, severe shortness of breath or difficulty breathing Thank you for allowing us to participate in your care. Pending Studies at Discharge: No Stand-Alone Forms: My [facility] redealize Medications and DC Order Prescriptions: Continued (DME) Aerovent Plus Spacer See Rx Instructions .ROUTE .MEDSUPPLY Qty: 1 RF: 0 lamotrigine 25 mg tablet 50 mg PO BID RF: 0 Lift Chair Misc See Rx Instructions .ROUTE .COMPLEX Qty: 1 RF: 0 multivitamin Tablet 1 tab PO DAILY RF: 0 omega-3 fatty acids-fish oil [Fish Oil] 360-1,200 mg Capsule 1 cap PO DAILY RF: 0 sertraline 25 mg tablet 25 mg PO QAM RF: 0 rosuvastatin 40 mg tablet 40 mg PO DAILY RF: 0 budesonide-formoterol [Symbicort] 160-4.5 mcg/actuation HFA aerosol inhaler 2 puff INHALATION BID RF: 0 Cognitive Health 500 mg Capsule 500 mg PO DIRECTED RF: 0 Discharge Orders: Discharge Order (Routine); Ordered 11/16/20 Ordered By: Hasmukh Conte/Other Patient Handouts: 5 Steps for Eating Healthier, A1C Admission Data Admit Date/Time: 11/14/20 22:28 Attending Provider: Floyd Saenz Admit Provider: Everett Aguila Primary Care Provider: Laurence Alfaro Other Providers: Jer Davis ; Everett Aguila Other Interventions: Discharge Summary Assessment (RN) Last Done: 11/16/20 14:49 Supervising Physician Co-Signing Physician Notes I personally examined the patient and verified all lundberg points of history and exam, discussed case, and agree with decision making with Dr Bee Discussed with neurology again. appearing safe/stable for home. Vitals noted, in general she is awake and alert very slow to respond but appears in no distress. HEENT normocephalic atraumatic mucous membranes moist. Cranial nerves II through XII are grossly intact gross motor appears to be intact as best can be assessed, no focal neuro deficits as best can be assessed Syncope/aphasiaappearing to have resolved. appears stable for home. otherwise as above Resident Activity Tracking Resident Involvement: Resident Care Provided Care Provided: Adult Hospital Medicine
--- NOTE | 2020-11-16 18:10 | Billing Data ---
Date of Service November 16, 2020 Coding Level of Care Code D/C Day Management <30 mins
== END 2020-11-16 15:25 | disposition home or self-care (01) | DRG 312 ==
LOC: 2S 20:03 → SUATTDRO 20:03